=== PATIENT | male | born 1950 | race Caucasian/White ===

== ENCOUNTER 2020-07-12 07:20 | Emergency (ER) | payer OTHER, SELFPAY ==
[2020-07-12 07:20] VITALS: BP 181/96; PULSE 110; RESP 18; TEMP 36.6; O2SAT 96; BMI 27.3
--- NOTE | 2020-07-12 07:50 | ED.GENADULT ---
HPI - General Adult General Chief complaint: Abdominal Pain Stated complaint: GROIN PAIN Time Seen by Provider: 07/12/20 07:37 Source: patient Mode of arrival: ambulatory Limitations: no limitations History of Present Illness HPI narrative: 69-year-old male who presents emergency department for evaluation of left groin pain x3 days. Patient states that he did do sit-ups 3-4 days ago but does not remember injuring himself. He states that after the sit-ups he then developed left-sided groin pain. He states the pain is a constant, aching pain. States the pain has been 8/10 at its worst. The patient has been taking Advil 400 mg 2 to 3 times a day with no relief of his pain. He states that he was up all night secondary to his pain therefore came to emergency department for evaluation this morning. The patient denied fever, chills, nausea, vomiting, frequency, urgency or dysuria. He states that he has no difficulty moving his bowels or passing gas. Patient states he did have a right-sided hernia 10 years prior which was repaired by has no other surgical history. He does not have any chronic medical conditions except for joint pain and he takes cqag-[id number] medications for this pain. Related Data Allergies Allergy/AdvReac Type Severity Reaction Status Date / Time No Known Allergies Allergy Unverified 03/08/20 14:35 [No Known Allergies*] Review of Systems Review of Systems: Yes all other systems are reviewed and are negative Neurologic: Reports Abnormal speech present [facility] Past Medical History [facility] Narrative: No chronic medical problems, the patient denies tobacco, alcohol and drug use. Social History Social History Advance Directives: No Advance Directives Information Provided: Yes Physical Exam Vital Signs: Vital Signs: Last Vital Signs Temp 97.9 F 07/12/20 07:20 Pulse 110 H 07/12/20 07:20 Resp 18 07/12/20 07:20 BP 181/96 H 07/12/20 07:20 Pulse Ox 96 07/12/20 07:20 Body Mass Index 27.3 Const: General: cooperative and healthy appearing Orientation/consciousness: oriented to person and oriented to place Limitations: no limitations HENMT: Head: Yes normal to inspection, Yes normocephalic and Yes atraumatic Ears: external ears normal General nose exam: Normal external nose present Face and sinus: Yes normal facial exam Mouth: Normal oral and palatal mucosa present Throat: Yes posterior oropharynx normal Eyes: Periorbital: periorbital findings normal Eyelids: Yes eyelids normal Conjunctivae: conjunctivae normal Sclerae: sclerae normal Corneas: corneas normal Pupils: Equal, round and reactive pupils present Direct Ophthalmoscopy: normal light reflex Neck: Neck: Yes full ROM, Yes no lymphadenopathy, Yes no meningeal signs, Yes trachea midline and Yes supple Chest: Chest palpation & inspection: normal inspection of the chest and normal palpation of entire chest wall Resp: Effort & Inspection: normal respiratory effort and able to speak in complete sentences Auscultation: clear to auscultation bilaterally Cardio: Rate: regular rate Rhythm: regular rhythm Heart sounds: S1 normal heart sound present, S2 normal heart sound present and no murmurs GI: Inspection: Yes normal to inspection Palpation (GI): Soft to palpation, nontender, no guarding, not rigid and No hepatosplenomegaly present : General: Yes no CVA tenderness Male General Exam: Yes normal external exam Penis: normal penis, no ecchymosis, not edematous and no masses Scrotum: scrotum normal and no inguinal hernias (Tender along the inguinal canal, no mass palpable) Testes: Testes normal Back/Spine/Pelvis: Back: no CVA tenderness Cervical Spine: normal cervical lordosis Thoracic/Lumbar Spine: thoracic and lumbar spine normal to inspection Skin: Lesions: no lesions Rashes: no rashes Wounds: no wounds Neuro: General: oriented to person, oriented to place and no meningeal signs Cranial nerves: Yes Equal, round and reactive pupils present Cognition (Neuro): normal cognition Speech: Abnormal speech present Motor exam (neuro): 5/5 motor strength present throughout Extrem: General: Yes normal to inspection and Yes full ROM Psych: Appearance: well kempt Mental Status: mental status grossly normal Speech and movement: Normal speech and movement present Affect: normal affect Attitude: cooperative Thought process: Normal thought process present Thought content: Normal thought content present Insight: Good insight present (Psych) Judgement: Good judgement present (Psych) Course Course Course Narrative: 69-year-old male who presents to emergency department for evaluation of left groin pain x3 days. The patient did do sit-ups prior to the pain starting however did not feel any discomfort while he was doing the sit-ups. Patient's of donation does reveal tenderness along the left inguinal canal however I do not feel any inguinal mass or hernia. My impression is that the patient probably opened up his inguinal canal for from doing sit-ups and may have some incarcerated fat but do not think that he has an obvious hernia or incarceration at this time. It is also possibly may have strained his left groin muscles. The patient was advised to use ice, ibuprofen and Tylenol for the next 3-4 days. He will be referred to our on-call surgeon for re-evaluation. He was given printed and verbal instructions on hernias. Discharge Plan Discharge Clinical Impression: Left inguinal pain Patient Disposition: Home, Self-Care Instructions: Groin Pain (ED) Additional Instructions: You do have tenderness over your left inguinal canal region. I suspect that from doing sit-ups you may have opened up. Inguinal canal in you may have some fat in this area which is causing you to have pain. I do not feel any intestine/bowel in this area (hernia). It is also possible you may have just strained your groin muscles. Take ibuprofen 200 mg pills, 3 pills every 6 hours as needed for pain. Take Tylenol (acetaminophen) 500 mg pills, 2 pills every 4 to 6 hours as needed for pain. Call the surgeon on-call to make a follow-up appointment within 1 to 2 week. Please return to the emergency department if your symptoms get worse or if you develop any symptoms that are concerning to you. Referrals: Ortiz Hollingsworth MD [Physician] - 2 days (Left inguinal pain after doing sit-ups, no hernia appreciated by me, needs follow-up exam)
--- NOTE | 2020-07-12 07:50 | PC.NURSE ---
RN AT BEDSIDE FOR MD EXAM. PT REPORTS PAIN LLQ QUADRANT NO OTHER SYMPTOMS. STATES HE WAS DOING SITUPS ON A BENCH BEFORE PAIN BEGAN. MD EXPLAINED COURSE OF CARE WITH PT FOR OUTPATIENT MEDS AND FOLLOW UP. PT AGREEABLE. WAITING DC PAPERWORK.
== END 2020-07-12 08:07 | disposition home or self-care (01) ==
PROVIDERS: Emergency Provider Emergency Medicine Emergency Medical Services
DX: R10.32 Left lower quadrant pain (principal); Z79.899 Other long term (current) drug therapy
CPT/HCPCS: 99284

== ENCOUNTER → 2020-07-19 11:07 | Outpatient (BNVA) | payer OTHER, SELFPAY | PROVIDERS: PCP Internal Medicine; Visit Provider Surgery ==

== ENCOUNTER 2020-09-10 11:46 | Outpatient (REF) | payer OTHER, SELFPAY ==
[2020-09-10 12:39] LABS: MANUAL DIFF FLAG NO
[2020-09-10 12:53] LABS: Estimated Average Glucose 97 mg/dL
[2020-09-10 12:57] LABS: Basophils Percent Auto 0.4 % (0-2); Eosinophils Absolute Auto 0.1 X10*3/uL (0.0-0.4); Eosinophils Percent Auto 1.8 % (0-4); Hematocrit 42.8 % (42-52); Hemoglobin 14.2 g/dl (14.0-18.0); Imm Gran Abs Auto 0.01 X10*3/uL (0.00-0.03); Imm Gran Pct Auto 0.2 % (0.0-0.4); Lymphocytes Absolute Auto 1.3 X10*3/uL (1.2-4.9); Lymphocytes Percent Auto 26.3 % (20-40); Mean Corpuscular HGB Conc 33.2 g/dl (31.0-36.0); Mean Corpuscular Hemoglobin 32.8 pg (27.0-33.0); Mean Corpuscular Volume 98.8 fL (80-98); Mean Platelet Volume 10.1 fL (9.4-12.4); Monocytes Absolute Auto 0.5 X10*3/uL (0.1-1.2); Monocytes Percent Auto 8.8 % (2-11); Neutrophils Absolute Auto 3.2 X10*3/uL (2.0-8.3); Neutrophils Percent Auto 62.5 % (45-73); Platelet Count 218 X10*3/uL (160-400); Red Blood Count 4.33 X10*6/uL (4.60-5.80); Red Cell Distribution Width 12.1 % (11.0-16.0); White Blood Count 5.1 X10*3/uL (4.8-10.8)
[2020-09-10 13:07] LABS: Alanine Aminotransferase 22 U/L (0-40); Albumin Level 4.4 g/dL (3.5-5.0); Alkaline Phosphatase 56 U/L (39-117); Anion Gap 16 (12-20); Aspartate Amino Transferase 21 U/L (5-37); Bilirubin Total 1.1 mg/dL (0.0-1.0); Blood Urea Nitrogen 21 mg/dL (9-16); Carbon Dioxide 26 mmol/L (22-29); Chloride 106 mmol/L (96-108); Cholesterol 218 mg/dL; Estimated Glomerular Filt Rate > 60; Glucose Random 91 mg/dL (60-115); HDL Cholesterol 70 mg/dL; LDL Cholesterol Calculated 132 mg/dl; Potassium 4.5 mmol/L (3.3-5.1); Sodium 143 mmol/L (135-145); Total Protein 6.5 g/dL (6.5-8.0); Triglycerides 84 mg/dL
[2020-09-10 13:28] LABS: Free T4 (Free Thyroxine) 0.86 ng/dL (0.71-1.85); Prostate Specific Antigen Scr 1.13 ng/mL (<0.05-4.0); Thyroid Stimulating Hormone 1.24 uIU/mL (0.32-4.0)
[2020-09-10 13:42] LABS: Folate 11.9 ng/mL (> or = 4.0); Vitamin B12 176 pg/mL (200-900)
== END 2020-09-10 11:47 | disposition home or self-care (01) ==
LOC: HO.LAB 11:46
PROVIDERS: PCP Internal Medicine; Visit Provider Internal Medicine
DX: R73.01 Impaired fasting glucose (principal); E66.3 Overweight; E78.00 Pure hypercholesterolemia, unspecified
CPT/HCPCS: 36415; 80053; 80061; 82607; 82746; 83036; 84153; 84439; 84443; 85025

== ENCOUNTER 2024-07-28 13:25 | Outpatient (REF) | payer OTHER, SELFPAY ==
[2024-07-28 14:25] LABS: MANUAL DIFF FLAG NO
[2024-07-28 15:46] LABS: Basophils Absolute Auto 0.1 X10*3/uL (0.0-0.2); Eosinophils Absolute Auto 0.2 X10*3/uL (0.0-0.4); Eosinophils Percent Auto 2.9 % (0-4); Hematocrit 44.3 % (42.0-52.0); Hemoglobin 15.2 g/dl (14.0-18.0); Imm Gran Abs Auto 0.02 X10*3/uL (0.00-0.03); Imm Gran Pct Auto 0.4 % (0.0-0.4); Lymphocytes Absolute Auto 1.6 X10*3/uL (1.2-4.9); Lymphocytes Percent Auto 30.1 % (20-40); Mean Corpuscular HGB Conc 34.3 g/dl (31.0-36.0); Mean Corpuscular Hemoglobin 34.2 pg (27.0-33.0); Mean Corpuscular Volume 99.6 fL (80.0-98.0); Monocytes Absolute Auto 0.4 X10*3/uL (0.1-1.2); Monocytes Percent Auto 8.5 % (2-11); Neutrophils Percent Auto 57.1 % (45-73); Platelet Count 213 X10*3/uL (160-400); Red Blood Count 4.45 X10*6/uL (4.60-5.80); Red Cell Distribution Width 11.9 % (11.0-16.0); White Blood Count 5.2 X10*3/uL (4.8-10.8)
[2024-07-28 16:28] LABS: Alanine Aminotransferase 57 U/L (0-40); Albumin Level 4.4 g/dL (3.5-5.0); Alkaline Phosphatase 56 U/L (39-117); Anion Gap 12 (12-20); Aspartate Amino Transferase 45 U/L (5-37); Bilirubin Total 1.2 mg/dL (0.0-1.0); Blood Urea Nitrogen 16 mg/dL (9-16); Calcium 9.4 mg/dL (8.4-10.2); Carbon Dioxide 24 mmol/L (22-29); Chloride 107 mmol/L (96-108); Cholesterol 199 mg/dL (<200); Estimated Glomerular Filt Rate > 60; Glucose Random 100 mg/dL (60-115); HDL Cholesterol 65 mg/dL (>40); LDL Cholesterol Calculated 117 mg/dL (<100); Potassium 4.2 mmol/L (3.3-5.1); Sodium 139 mmol/L (135-145); Total Protein 7.3 g/dL (6.5-8.0); Triglycerides 86 mg/dL (<150)
[2024-07-28 16:44] LABS: Folate 9.1 ng/mL (> or = 4.0); Vitamin B12 1455 pg/mL (200-900)
[2024-07-28 16:45] LABS: Free T4 (Free Thyroxine) 1.01 ng/dL (0.71-1.85); Thyroid Stimulating Hormone 2.49 uIU/mL (0.32-4.0)
[2024-07-29 19:24] LABS: Homocysteine 15.6 umol/L (<11.4)
[2024-08-02 08:59] LABS: Methylmalonic Acid 108 nmol/L (69-390)
[2024-08-02 21:02] LABS: Intrinsic Factor Antibodies Negative (Negative)
[2024-08-02 22:14] LABS: Parietal Cell Antibody <=20.0 Unit (<=20.0)
== END 2024-07-28 13:26 | disposition home or self-care (01) ==
LOC: HO.LAB 13:25
PROVIDERS: PCP Internal Medicine; Visit Provider Internal Medicine
DX: E78.00 Pure hypercholesterolemia, unspecified (principal)
CPT/HCPCS: 36415; 80053; 80061; 82607; 82746; 83090; 83516; 83921; 84439; 84443; 85025; 86340

== ENCOUNTER 2024-08-12 08:04 | Outpatient (REF) | payer OTHER, SELFPAY ==
--- NOTE | ~2024-08-12 | US_ITS ---
CLINICAL HISTORY: R79.89 - Other specified abnormal findings of blood chemistry Ultrasound of the abdomen Comparison: None Findings: The liver is normal in size, measuring 15.4cm. Increased echogenicity without focal lesions. Normal flow is visualized within the portal vein. No intrahepatic biliary ductal dilatation. No cholelithiasis. No gallbladder wall thickening or pericholecystic fluid. Negative Diane's sign. The common bile duct is normal, measuring 0.2cm. Unremarkable limited evaluation of the pancreas. The right kidney is normal in echogenicity and size, measuring 11.6cm. No nephrolithiasis or hydronephrosis. Parapelvic cyst versus dilation of the renal pelvis measuring 1.5 x 1.6 x 1.9 cm. The left kidney is normal echogenicity and size, measuring 11.5cm. No nephrolithiasis or hydronephrosis. The spleen is without focal lesions and normal in size, measuring 9.9cm. The aorta and IVC are unremarkable. No ascites. Impression: Hepatic steatosis. This document has been electronically signed by: Karmen Jasso MD on 08/12/2024 13:22:24
--- OUTSIDE RECORDS SUMMARY | 2024-08-12 08:10 | XMS_ITS | Patient Health Record ---
Author Organization [facility] Address [address] [place] [address] Care Team Providers Care Lens Mold Setter Name Role Phone Vida Shepard MD Primary Care Provider Ga Gee [phone] REASON FOR REFERRAL No Information MEDICATIONS Medication SIG (Take, Route, Fr equency, Duration) Notes Start Date End Date Status Suprep Bowel Prep 1 kit as directed Oral ly as directed for 1 dose 07/07/2013 Active Joint Support Active Metamucil as directed Orally o nce a day Active IMMUNIZATIONS Vaccine Route Administration Date Status Comme nts Influenza Unknown 03/22/2019 Administered SOCIAL HISTORY Tobacco Use: Social History Observation Description Date Details (start date - stop date) Former Smoker NA - NA Sex Assigned At : Social History Observation Description Sex Assigned At Unknown Tobacco Use/Smoking Question Answer Notes Patient is a former smoker When did you stop smoking? 35 plus years How long has it been since you last smoked? > 10 years PROBLEMS Problem Type ICD Code Onset Dates Problem Status W/U Status Risk SNOMED Code Notes Problem Encounter for screening for malignant neoplasm of colon (Z12.11) Active confirmed 685384090 Problem History of adenomatous polyp of colon (Z86.010) Active confirmed 999988937 Problem Preprocedural examination (Z01.818) Active confirmed 851899089852552 PLAN OF TREATMENT Future Test Test Name Order Date COLONOSCOPY 07/07/2013 COLONOSCOPY 05/12/2019 Next Appt Details Provider Name:Ga Nascimento , 09/08/2024 10:40:00 AM, [address], [address], [place], [address], Insurance Providers Payer Name Payer Address Payer Phone Subscriber Number Group Number Insured Name Patient Relationship to Insured Coverage Start Date Coverage End Date [facility] [address] [place] [phone] [id number] PURA CRUZ Self - patient is the insured MEDICAL (GENERAL) HISTORY Medical History History ICD Code Colonoscopy 04-05-2008--smal l tubular adenomas removed, mild sigmoid diverticulosis, internal hemorrhoids Denies [place],DM,CVA,Lung disease,renal dise ase Colonoscopy in 08/2013--small tubular helio nomas removed Surgical History Surgery Date(Month/Year) Shoulder surgery Knee surgery Elbow surgery Inginal hernia surgery
== END 2024-08-12 08:05 | disposition home or self-care (01) ==
LOC: HO.US 08:04
PROVIDERS: Visit Provider Internal Medicine
DX: R79.89 Other specified abnormal findings of blood chemistry (principal)
CPT/HCPCS: 76700

== ENCOUNTER → 2024-08-12 08:06 | Outpatient (BNV) | payer OTHER, SELFPAY | PROVIDERS: Visit Provider Radiology Diagnostic Radiology | DX: K76.0 Fatty (change of) liver, not elsewhere classified (principal) | CPT/HCPCS: 76700 ==

== ENCOUNTER 2024-08-26 07:11 | Outpatient (REF) | payer OTHER, SELFPAY ==
[2024-08-26 08:22] LABS: Alanine Aminotransferase 35 U/L (0-40); Albumin Level 4.1 g/dL (3.5-5.0); Alkaline Phosphatase 63 U/L (39-117); Anion Gap 11 (12-20); Aspartate Amino Transferase 28 U/L (5-37); Bilirubin Total 0.7 mg/dL (0.0-1.0); Blood Urea Nitrogen 19 mg/dL (9-16); Carbon Dioxide 26 mmol/L (22-29); Chloride 110 mmol/L (96-108); Estimated Glomerular Filt Rate > 60; Glucose Random 100 mg/dL (60-115); Potassium 4.5 mmol/L (3.3-5.1); Sodium 142 mmol/L (135-145); Total Protein 6.9 g/dL (6.5-8.0)
[2024-08-26 09:01] LABS: HBc Num1 0.12 S/CO (0.00-0.79); HBsAGNum1 0.33 S/CO (0.00-0.99); Hepatitis B Core Antibody Nonreactive (Nonreactive); Hepatitis B Surface Antigen Negative (Negative); ~HepC Num1 0.08 S/CO (0.00-0.79); ~Hepatitis B Surface Antibody NONREACTIVE (Nonreactive); ~Hepatitis C Antibody Nonreactive (Nonreactive)
== END 2024-08-26 07:12 | disposition home or self-care (01) ==
LOC: HO.LAB 07:11
PROVIDERS: PCP Internal Medicine; Visit Provider Internal Medicine
DX: R79.89 Other specified abnormal findings of blood chemistry (principal)
CPT/HCPCS: 36415; 80053; 86704; 86706; 86803; 87340

== ENCOUNTER 2024-11-04 13:07 | Outpatient (AMB) | payer OTHER, SELFPAY ==
--- OUTSIDE RECORDS SUMMARY | 2024-11-04 13:09 | XMS_ITS ---
Author Organization [facility] Address [address] [place] [address] Care Team Providers Care Benefits Counselor Name Role Phone Vida Shepard MD Primary Care Provider Ga Gee [phone] Allergies No Known Allergies REASON FOR VISIT Patient presents today for a colon recall Medications Medication SIG (Take, Route, Frequency, Duration) Notes Start Date End Date Status Metamucil as directed Orally once a day Active Social History Tobacco Use: Social History Observation Description Date Details (start date - stop date) Former Smoker NA - NA Tobacco Use/Smoking Question Answer Notes Patient is a former smoker When did you stop smoking? 35 plus years How long has it been since you last smoked? > 10 years Section Notes: Nonsmoker; Vital Signs Blood pressure systolic 111 mm Hg 09/09/19 25 Blood pressure diastolic 111 mm Hg 025 Height 70.5 in 09/08/2024 Weight 200 lbs 09/08/2024 BMI 28.29 kg/m2 09/08/2024 Procedures Procedure Date Ordered Date Performed Result Body Sit e COLONOSCOPY 09/08/2024 N/A Encounters Encounter Location Date Provider Diagnosis [facility] [address] [place] [address] 09/08/2024 Ga Nascimento History of adenomato us polyp of colon Z86.010 ; Preprocedural examination Z01.818 and Encounter for screening for malignant neoplasm of colon Z12.11 Assessments Encounter Date Diagnosis (ICD Code) Assessment Notes Treatment Notes Treatment Clinical Notes Section Notes 09/08/2024 History of adenomatous polyp of colon (ICD-10 - Z86.010) Overall, Johnie appears quite well. Given his previous history of tubular adenomas, his family history of colon cancer, and his last colonoscopy being over 5 years ago, I did recommend a follow-up colonoscopy for further screening purposes. We did review the rationale for this in regard to colon cancer prevention. Full consent has been obtained for this, including risks of bleeding and perforation. The procedure will be done with monitored anesthesia care. Johnie was comfortable with this plan. Thank you again for allowing me to participate in Johnie's care. I shall continue to keep you advised of his progress. 09/08/2024 Preprocedural examination (ICD-10 - Z01.818) Overall, Johnie appears quite well. Given his previous history of tubular adenomas, his family history of colon cancer, and his last colonoscopy being over 5 years ago, I did recommend a follow-up colonoscopy for further screening purposes. We did review the rationale for this in regard to colon cancer prevention. Full consent has been obtained for this, including risks of bleeding and perforation. The procedure will be done with monitored anesthesia care. Johnie was comfortable with this plan. Thank you again for allowing me to participate in Johnie's care. I shall continue to keep you advised of his progress. 09/08/2024 Encounter for screening for malignant neoplasm of colon (ICD-10 - Z12.11) with MAC Overall, Johnie appears quite well. Given his previous history of tubular adenomas, his family history of colon cancer, and his last colonoscopy being over 5 years ago, I did recommend a follow-up colonoscopy for further screening purposes. We did review the rationale for this in regard to colon cancer prevention. Full consent has been obtained for this, including risks of bleeding and perforation. The procedure will be done with monitored anesthesia care. Johnie was comfortable with this plan. Thank you again for allowing me to participate in Johnie's care. I shall continue to keep you advised of his progress. Plan Of Treatment Treatment Notes Assessment Notes Encounter for screening for malignant ne oplasm of colon with MAC Pending Test Test Name Order Date COLONOSCOPY 09/08/2024 Next Appt Details Follow Up: prn, Reason: Provider Name:Ga Brenda Nascimento , 12/07/2024 10:30:00 AM, [address] [place] [address] , [place], [place], [phone], Progress Notes * PURA CRUZOB:[birth year] (73 yo M)Acc No.[id number]:09/08/2024 Progress Notes Patient:?PURA CRUZ Provider:?Ga Nascimento MD :1950???Age:73 Y???Sex:Male Hai e:09/08/2024 Address:[address] [facility] Pcp:Vida Shepard MD Subjective: * Chief Complaints: * ???Patient presents today fo r a colon recall * HPI: ???incontinence:? I saw Johnie in the office today for evaluation of his personal history of tubular adenomas of the colon, family history of colon cancer, and need for colorectal cancer screening. I last saw Johnie in July 2019, at which time he underwent a follow-up colonoscopy with removal of a small tubular adenoma. He presently feels very well. He enjoys a good appetite, without any significant heartburn or dysphagia. His bowel movements have remained regular and without any signs of bleeding. He denies abdominal pain, jaundice, nor unintentional weight loss. His family history is notable for his brother having from colon cancer in his 50s. Laboratories from earlier this year revealed a normal CBC, chemistries and renal function, and liver profile. * ROS:?General/Constitutional:?Change in appetite?denies.?Chills?denies.?Fatigue?denies.?Ophthalmologic:?Patient denies? Negative..?ENT:?Patient denies?Negative..?Respiratory:?Patient denies?No coughing/hemoptysis..?Cardiovascular:?Patient denies? No chest pain/orthopnea..?Gastrointestinal:?Comments?See HPI for details.?Genitourinary:?Patient denies? No dysuria/hematuria..?Musculoskeletal:?Patient denies? No specific arthralgias/myalgias..?Skin:?Patient denies?No rash/pruritus..?Neurologic:?Patient denies? No headaches/seizures..?Psychiatric:?Patient denies?Negative..? * Medical History:? * Surgical History:?Shoulder s urgery Knee surgery Elbow surgery Inginal hernia surgery * Hospitalization/Major Diagno stic Procedure:?No Hospitalization History. * Family History:?Father: dece ased, diagnosed with Heart disease.?Mother: .?Siblings: , brother of colon cancer at age 55.? * Social History:?Tobacco Use:?Tobacco Use/Smoking?Patient is a?former smoker,?When did you stop smoking??35 plus years,?How long has it been since you last smoked??> 10 years.?Drugs/Alcohol:?Alcohol Screen?Points: 4, Interpretation: Positive.?Miscellaneous:?Marital status: . 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 ???Nonsmoker;. * Medications:?TakingMetamucil as directed Orally once a day Taking Metamucil as directed Orally once a day DiscontinuedSuprep Bowel Prep 1 kit Solution as directed Orally as directed Joint Support Medication List reviewed and reconciled with the patientDiscontinued Suprep Bowel Prep 1 kit Solution as directed Orally as directed Discontinued Joint Support Medication List reviewed and reconciled with the patient * Allergies:?N.K.D.A.yes[Aller gies Verified] Objective: * Vitals:?Wt:200lbs, Ht: 70.5 in, BMI:28.29Index, BP:111/111mm Hg, Wt-k.72. * Examination: ???General Examination: ?GENERAL APPEARANCE:?pleasant, well nourished, well developed, in no acute distress.?EYES:?sclera non-icteric.?ORAL CAVITY:?mucosa moist.?NECK/THYROID:?no cervical lymphadenopathy, neck supple.?SKIN:?nonjaundiced, no spider angiomata..?HEART:?S1, S2 normal.?LUNGS:?clear to auscultation bilaterally.?ABDOMEN:?normal bowel sounds, no guarding or rigidity, no hepatosplenomegaly, no masses palpable, soft, nontender, nondistended..?EXTREMITIES:?no edema.?NEUROLOGIC:?alert and oriented.? Assessment: * Assessment: 1.?Preprocedural examination - Z01.818 (Primary)???2.?History of adenomatous polyp of colon - Z86.010???3.?Encounter for screening for malignant neoplasm of colon - Z12.11??? Overall, Johnie appears quite well. Given his previous history of tubular adenomas, his family history of colon cancer, and his last colonoscopy being over 5 years ago, I did recommend a follow-up colonoscopy for further screening purposes. We did review the rationale for this in regard to colon cancer prevention. Full consent has been obtained for this, including risks of bleeding and perforation. The procedure will be done with monitored anesthesia care. Johnie was comfortable with this plan. Thank you again for allowing me to participate in Johnie's care. I shall continue to keep you advised of his progress. Plan: * Treatment: 2.?Encounter for screening for malignant neoplasm of colon?Procedure: COLONOSCOPY* sched for 12/07/24 at 10:30 a mmacmiralax Notes: with MAC?? * Procedure Codes:?27686 DIAGN OSTIC [id number] COLORECTAL CA SCREEN DOC [id number] TOBACCO [id number] BP SCR NOT PRFRM REC REASON [id number] RCMND FLW-UP 10 YRS DOCD * Preventive Medicine:? ??Counseling:?Care goal follow-up plan:?Above Normal BMI Follow-up?Giving encouragement to exercise,?Below Normal BMI Follow-up?Lifestyle education regarding diet,?BMI management provided?Yes.? ??Screenings:?Fall Risk Screening?Fall Risk Assessment:?No falls in the past year,?Screening:?No falls in the past year,?Assessment:?Not performed, no reason specified,?Plan of Care:?Not documented, no reason specified.? * Follow Up:?prn * * Sign off status: Completed true * Provider:?Ga Nascimento MD Date:? 025 Generated for Printi ng/Faxing/eTransmitting on:?11/04/2024 01:09 PM EDT History and Physical Notes * Examination Category Sub-Category Detail Notes Category Not es General Examination GENERAL APPEARANCE: pleasant , well nourished, well developed, in no acute distress EYES: sclera non-icteric NECK/THYROID: no cervical lymphade nopathy, neck supple HEART: S1, S2 normal LUNGS: clear to auscultatio n bilaterally ABDOMEN: normal bowel sounds, no guarding or rigidity, no hepatosplenomegaly, no masses palpable, soft, nontender, nondistended. NEUROLOGIC: alert and oriented SKIN: nonjaundiced, no spi cristina angiomata. EXTREMITIES: no edema ORAL CAVITY: mucosa moist
--- OUTSIDE RECORDS SUMMARY | 2024-11-04 13:09 | XMS_ITS | Patient Health Record ---
Author Organization [facility] Address [address] [place] [address] Care Team Providers Care Furnace Cleaner Name Role Phone Vida Shepard MD Primary Care Provider Ga Gee [phone] Allergies No Known Allergies Reason For Referral No Information Medications Medication SIG (Take, Route, Frequency, Duration) Notes Start Date End Date Status Metamucil as directed Orally once a day Active Immunizations Vaccine Route Administration Date Status Comme nts Influenza Unknown 03/22/2019 Administered Social History Tobacco Use: Social History Observation Description Date Details (start date - stop date) Former Smoker NA - NA Tobacco Use/Smoking Question Answer Notes Patient is a former smoker When did you stop smoking? 35 plus years How long has it been since you last smoked? > 10 years Section Notes: Nonsmoker; 2 drinks a night Nonsmoker; 2 drinks a night Nonsmoker; Problems Problem Type SNOMED Code ICD Code Onset Dates Problem Status W/U Status Risk Notes Problem [id number] Encounter for screening for malignant neoplasm of colon (Z12.11) Active confirmed Problem 709559894 History of adenomatous polyp of colon (Z86.010) Active confirmed Problem 374514342118998 Preprocedural examination (Z01.818) Active confirmed Vital Signs Blood pressure diastolic 111 mm Hg 09/08/2024 Height 70.5 in 09/08/2024 Blood pressure systolic 111 mm Hg 09/08/2024 Weight 200 lbs 09/08/2024 BMI 28.29 kg/m2 09/08/2024 Procedures Procedure Date Ordered Date Performed Result Body Sit e COLONOSCOPY 09/08/2024 N/A Encounters Encounter Location Date Provider Diagnosis [facility] [address] [place] [address] 09/08/2024 Ga Nascimento History of adenomato us [...] advised of his progress. Plan Of Treatment Pending Test Test Name Order Date COLONOSCOPY 09/08/2024 Future Test Test Name Order Date COLONOSCOPY 07/07/2013 COLONOSCOPY 05/12/2019 Next Appt Details Provider Name:Ga Nascimento , 12/07/2024 10:30:00 AM, [address] [place] [address] , [place], [place], [phone], Insurance Providers Payer Name Payer Address Payer Phone Subscriber Number Group Number Insured Name Patient Relationship to Insured Coverage Start Date Coverage End Date [facility] [address] [place] [phone] [id number] PURA CRUZ Self - patient is the insured Medical (General) History Medical History History ICD Code Colonoscopy 04-05-2008--smal l tubular adenomas removed, mild sigmoid diverticulosis, internal hemorrhoids Denies CA,DM,CVA,Lung disease,renal dise ase Colonoscopy in 08/2013--small tubular helio nomas removed Colonoscopy 07/2019 with removal of a sma ll tubular adenoma Surgical History Surgery Date(Month/Year) Inginal hernia surgery Elbow surgery Knee surgery Shoulder surgery
--- NOTE | 2024-11-04 13:18 | MHC.PC.OV ---
Vital Signs 11/04/24 13:25 Height 5 ft 11 in Weight 197 lb 4 oz BMI 27.5 BP 136/64 Blood Pressure Location Lt brachial Position Sitting Pulse 95 Pulse Source Pulse Oximeter Temp 97.1 F Temp Source Temporal Artery Scan Pulse Oximetry (%) 97 Oxygen Delivery Method Room Air Intake Visit Reasons: Annual Exam Field Case Manager Required: No Accompanied by: Self / Same As Patient Allergies No Known Allergies [No Known Allergies*] Allergy (Verified 11/04/24 13:19) Medication List - Last Reconciled 11/04/24 by Vida Shepard MD antiarthritic combination no.2 (glucosamine-chondroitin) mg PO psyllium husk (Metamucil) 0.52 grams PO DAILY Tobacco use date assessed: 07/28/24 Fall risk assessment: No Falls in past year Last assessed Fall Risk: 11/04/24 Dental Screening Dental Screen Date: 07/28/24 [facility] Medical History (Updated 11/04/24 @ 13:48 by Vida Shepard MD) LFT elevation Elbow fracture, right Left groin pain No active medical problems Surgical History H/O shoulder surgery H/O: knee surgery H/O inguinal hernia repair Family History Brother History of colon cancer, Onset Age: 48 Social History (Updated 11/04/24 @ 13:39 by Vida Shepard MD) Housing: House Alcohol intake: current Alcohol intake frequency: 0-2 drinks per day Comment: QD 1 drink Patient Tobacco Use Status: Former Tobacco user Years Smoked: 30 years old e-Cigarette/Vaping Use: Never Used Second Hand Smoke Exposure: No service: No Current occupational status: employed Current occupational exposures/hazards: No Cognitive needs: No Hearing needs: No Vision needs: No Questionnaire Thrive Questionnaire Date Thrive assessed: 07/28/24 I am a: Patient What is your living situation today?: I have a steady place to live Within the past 12 months, did the food you bought not last and you didn't have the money to get more?: Never true Within the past 12 months, did you worry whether your food would run out before you got money to buy more?: Never true Do you have trouble paying for medicines?: No Do you have trouble getting transportation to medical appointments?: No Do you have trouble paying your heating and electricity bill?: No Do you have trouble taking care of your child, family member or friend?: No Do you have trouble with day-to-day activities such as bathing, preparing meals, shopping, managing finances, etc.?: No Are you currently unemployed and looking for a job?: No Are you interested in more education?: No Please select the resources that you would like help with: None Currently or been in a relationship where the following occur: No concerns reported THRIVE Score: 0 NATALIE-7 AMB Questionnaire NATALIE-7 Date NATALIE - 7 assessed: 07/28/24 Source: Developed by Drs. Ga Tee, Claudia Morin, Kaden Mcclendon and colleagues, with an educational tg from [employer]. Review of Systems Const Denies poor appetite and Denies weakness Eyes Denies no additional complaints ENT Reports Normal hearing present, Denies dizziness, Denies nasal congestion, Denies tinnitus and Denies sore throat Card Denies chest pain, Denies syncope, Denies rapid heart rate and Denies dyspnea Resp Denies cough and Denies dyspnea GI Denies change in stool character, Reports constipation, Denies diarrhea, Denies nausea and Denies vomiting Denies dysuria and Denies urinary frequency Neuro Reports Normal hearing present, Denies confusion, Denies dizziness, Denies syncope and Denies weakness Psych Denies confusion Physical exam (Primary Care) Vital Signs: Last Vital Signs Temp 97.1 F 11/04/24 13:25 Pulse 95 11/04/24 13:25 BP 136/64 11/04/24 13:25 Pulse Ox 97 11/04/24 13:25 Oxygen Delivery Method Room Air 11/04/24 13:25 BMI result Body Mass Index 27.5 Tobacco/Smoking Status: Tobacco use Status Tobacco use date assessed 07/28/24 11/04/24 13:18 Patient Tobacco Use Status Former Tobacco user 11/04/24 13:39 e-Cigarette/Vaping Use Never Used 11/04/24 13:39 Thrive Assessment: Date of Thrive Assessment Date Thrive assessed 07/28/24 11/04/24 13:18 Currently or been in a relationship where the following occur: No concerns reported Const General: No confusion Orientation/consciousness: No confusion HENMT Other: impacted cerumen L ear , R TM intact Head: Yes normocephalic Ears: external ears normal Face and sinus: Yes normal facial exam Mouth: moist mucous membranes Throat: Yes tonsils normal Eyes Conjunctivae: conjunctivae normal Pupils: Equal, round and reactive pupils present and Pupil accommodation reflex normal Direct Ophthalmoscopy: normal light reflex Neck Neck: No lymphadenopathy Thyroid: Thyroid normal Chest Chest palpation & inspection: normal inspection of the chest Resp Effort & Inspection: normal respiratory effort and no audible wheezes Auscultation: clear to auscultation bilaterally, no crackles, no wheezes and lung sounds not diminished Cardio Rate: regular rate Rhythm: regular rhythm Peripheral pulses: radial pulses present and dorsalis pedis present GI Other: colon test 11/2024 Palpation (GI): no masses Auscultation: normal bowel sounds and normoactive bowel sounds Rectal Exam - Male: Yes deferred Male General Exam: Yes normal external exam Skin General skin exam: no rashes or lesions noted Rashes: no rashes Neuro General: No confusion Cranial nerves: Yes Equal, round and reactive pupils present and Yes Normal hearing present Cognition (Neuro): normal cognition Gait exam (Neuro): Normal gait present Motor exam (neuro): 5/5 motor strength present throughout Deep tendon reflexes (DTR's): Right brachioradialis reflex intensity grade: 2+, Left brachioradialis reflex intensity grade: 2+, Right patellar reflex intensity grade: 2+ and Left patellar reflex intensity grade: 2+ Extrem General: No edema Office Procedures Cerumen Removal From which ear canal was the cerumen removed: left Removal: otoscope w/curette and cerumen loop/spoon Notes: patient tolerated procedure well, no complications and ear canal clear 40641-[id number] Wax Removal by Spoon/Curette Coding Level of Care Code Est Pt Level 3 (31272) Est Pt Prev Care >65y(42635) Diagnoses Annual physical exam Z00.00 Hepatic steatosis K76.0 Colon cancer screening Z12.11 Hypercholesterolemia E78.00 Vitamin B12 deficiency E53.8 Impaired fasting blood sugar R73.01 Overweight (BMI 25.0-29.9) E66.3 Impacted cerumen of left ear H61.22 CPT Codes Office Procedure - CPT: 43755-Mqj Wax Removal by Spoon/Curette ([id number]) Assessment & Plan Assessment & Plan (1) Annual physical exam: Code(s): Z00.00 - Encounter for general adult medical examination without abnormal findings Category: Medical Plan: Patient is advised to eat healthy, keep well hydrated, keep active and have adequate sleep. (2) Hepatic steatosis: Comment: July 2024 Code(s): K76.0 - Fatty (change of) liver, not elsewhere classified Category: Medical Plan: Low-fat diet and exercise. Noted weight loss (3) Colon cancer screening: Code(s): Z12.11 - Encounter for screening for malignant neoplasm of colon Category: Medical Plan: Patient has a scheduled colonoscopy in December 07 2024 (4) Hypercholesterolemia: Code(s): E78.00 - Pure hypercholesterolemia, unspecified Category: Medical Plan: Avoid fried foods, chicken skin, eggs, butter margarine, pastries and meat. Be it pork or beef they have a lot of cholesterol recent blood work in August reveals normal cholesterol. (5) Vitamin B12 deficiency: Code(s): E53.8 - Deficiency of other specified B group vitamins Category: Medical Plan: Continue with taking vitamin B12 (6) Impaired fasting blood sugar: Code(s): R73.01 - Impaired fasting glucose Category: Medical Plan: Decrease the amount of carbohydrate intake, pasta, bread, rice and potatoes are all sugar and that is aside from all the sweet stuff, remember that fruits are good but they are Sweet also. (7) Overweight (BMI 25.0-29.9): Code(s): E66.3 - Overweight Category: Medical Plan: Continue with diet and exercise (8) Impacted cerumen of left ear: Code(s): H61.22 - Impacted cerumen, left ear Category: Medical Plan: scoop used and no irrigation TM intact Plan History of Present Illness The patient is a 73-year-old male presenting with a follow-up visit for health maintenance and management of chronic conditions, specifically impaired glucose tolerance, hypercholesterolemia, and hepatic steatosis. The patient has noted a significant weight loss of 17 pounds, attributed to dietary changes and an exercise regimen. Hepatic steatosis was confirmed in an abdominal ultrasound performed in July 2020. Recent laboratory work from August showed mild hyperglycemia, while cholesterol management has been effective, indicating normal lipid levels during the last assessment. Thyroid function was normal. The patient has scheduled a follow-up colonoscopy for December 07, 2024, as his last screening was done in 2019. Previous medical history includes surgeries for shoulder, knee, and hernia. Lifestyle modifications with an emphasis on a low-fat diet and regular exercise have been adapted to manage his conditions, aligning with current wellness goals. Health Maintenance - Scheduled colonoscopy on December 07, 2024 - Adherence to low-fat diet and regular exercise regimen - Recognition of normal cholesterol levels as of August 2024 labs - Continued monitoring of glucose levels and hepatic function - Vaccination review, encouraged to consider dual shingles vaccine for increased efficacy - Confirmation of prior pneumonia and tetanus vaccinations Social History - Employment: Involves dining out regularly due to work obligations - Alcohol use: Consumes alcohol daily, limited to one drink - Tobacco use: Ceased cigarette smoking 40 years ago - Diet: Follows low-fat diet substituting chicken or fish for red meat - Exercise: Engages in regular physical activity contributing to weight loss Review of Systems - Cardiovascular: Denies chest pain, palpitations, or shortness of breath - Respiratory: Denies dyspnea, cough - Gastrointestinal: Denies nausea, vomiting, constipation; normal bowel movements - Genitourinary: Nighttime urination once; denies dysuria or urgency - Neurological: Denies dizziness, syncope, sensory changes - Endocrine: Denies polyphagia, polydipsia, or polyuria - Musculoskeletal: Denies joint pain, reports past knee and shoulder surgeries - Ophthalmologic: Reports normal vision, no recent testing mentioned - Otorhinolaryngologic: Denies hearing loss, tinnitus Physical Exam General: Cooperative, healthy appearing, comfortable, no acute distress and well developed Orientation: Patient oriented x3 Limitations: No limitations Head: Normal to inspection Ears: Hearing grossly normal bilaterally, ear wax noted Nose: Normal external nose present Face and sinus: Normal facial exam Eyes: Appearance normal, both eyes and all related structures Neck: Normal visual inspection and Yes full ROM Respiratory: Normal respiratory effort and able to speak in complete sentences. Clear to auscultation bilaterally Cardiovascular: Regular rate and rhythm. Normal S1 and S2 GI: Normal to inspection. Soft to palpation and nontender Skin: No rashes or lesions noted Neuro: Patient oriented x3 Extremities: Normal to inspection Results - Labs: Blood sugar mildly elevated at 100 mg/dL; normal cholesterol, good liver function - Tests: Previous ultrasound confirmed hepatic steatosis - Diagnostics planned: Colonoscopy scheduled for December 07, 2024 Plan Impaired glucose tolerance will be managed with continued diet and exercise modifications, focusing on weight loss and metabolic control. Hypercholesterolemia remains under control, and current management will persist. Scheduled colonoscopy on December 07, 2024, will ensure appropriate cancer screening. Monitoring hepatic function and managing hepatic steatosis with lifestyle measures will remain a priority. Additional shingles vaccination was discussed, considering patient?s history. Patient was informed and verbally consented to the use of an ambient scribe for clinic note documentation during this visit. Discussion Notes During our discussion, it was emphasized that maintaining a low-fat diet and regular physical activity is crucial for managing glucose and lipid levels as well as hepatic health. The patient expressed awareness and compliance with dietary recommendations. I advised scheduling follow-up blood work in approximately eight months to reassess fasting glucose, lipid levels, and liver enzymes to track improvement and manage health risks proactively. Colonoscopy scheduled for December 07, 2024, was confirmed for colorectal cancer screening. Vaccination history was reviewed, and I encouraged considering the two-part shingles vaccine for improved efficacy, confirming prior tetanus and pneumonia vaccines with pharmacy records as necessary. The patient was reminded of the importance of hydration and moderation of alcohol consumption. Patient Instructions - Maintain low-fat diet and exercise regularly - Attend scheduled colonoscopy on December 07, 2024 - Drink plenty of water daily - Limit alcohol intake - Consider completing the two-part shingles vaccination - Follow up with blood work in approximately eight months - Monitor for any new symptoms or changes in health - Return for annual wellness check or sooner if needed Orders: Orders Complete Blood Count Auto Diff 8 Months R73.01 - Impaired fasting glucose Comprehensive Met. Panel 8 Months R73.01 - Impaired fasting glucose Thyroid Stimulating Hormone 8 Months R73.01 - Impaired fasting glucose Lipid Panel 8 Months E78.00 - Pure hypercholesterolemia, unspecified, R73.01 - Impaired fasting glucose Prostate Specific Antigen Scr 8 Months R73.01 - Impaired fasting glucose Free T4 (Free Thyroxine) 8 Months R73.01 - Impaired fasting glucose Vitamin B12 and Folate 8 Months R73.01 - Impaired fasting glucose Hemoglobin A1c 8 Months R73.01 - Impaired fasting glucose
[2024-11-04 13:25] VITALS: BP 136/64; PULSE 95; TEMP 36.2; O2SAT 97; BMI 27.5
== END 2024-11-04 14:15 | disposition home or self-care (01) ==
LOC: HO.HMCH 13:08
PROVIDERS: Visit Provider Internal Medicine
DX: Z00.00 Encounter for general adult medical examination without abnormal findings (principal); K76.0 Fatty (change of) liver, not elsewhere classified; Z12.11 Encounter for screening for malignant neoplasm of colon; E78.00 Pure hypercholesterolemia, unspecified; E53.8 Deficiency of other specified B group vitamins; R73.01 Impaired fasting glucose; E66.3 Overweight; H61.22 Impacted cerumen, left ear

== ENCOUNTER → 2024-11-04 13:07 | Outpatient (BNVA) | payer OTHER, SELFPAY | PROVIDERS: Visit Provider Internal Medicine | DX: Z00.00 Encounter for general adult medical examination without abnormal findings (principal); H61.22 Impacted cerumen, left ear; K76.0 Fatty (change of) liver, not elsewhere classified; E78.00 Pure hypercholesterolemia, unspecified; E53.8 Deficiency of other specified B group vitamins; R73.01 Impaired fasting glucose; E66.3 Overweight; Z68.27 Body mass index [BMI] 27.0-27.9, adult | CPT/HCPCS: 69210 ==

== ENCOUNTER 2024-12-07 09:02 | Day surgery (SDC) | payer OTHER, SELFPAY ==
[2024-12-05 11:23] VITALS: BMI 27.5
--- NOTE | 2024-12-06 10:05 | P.CONAN_ITS ---
Documented by User: Lynn Bergman NP 12/06/24 10:05 HPI - Anesthesia Eval Consult details Narrative: 73yo M for Colonoscopy PMFSH Active Problems Active Problems: All Active Problems Impacted cerumen of left ear (Acute) Annual physical exam (Acute) Hepatic steatosis (Acute) Colon cancer screening (Acute) Vitamin B12 deficiency (Acute) Hypercholesterolemia (Acute) Impaired fasting blood sugar (Acute) Overweight (BMI 25.0-29.9) (Acute) Left groin pain (Acute) No active medical problems (Acute) Past Medical History Medical History LFT elevation Elbow fracture, right Left groin pain No active medical problems Family History Family History Brother History of colon cancer, Onset Age: 48 Surgical History Surgical History H/O colonoscopy Hx of elbow surgery H/O shoulder surgery H/O: knee surgery H/O inguinal hernia repair Social History Social History Housing: House Alcohol intake: current Alcohol intake frequency: a few times a week Comment: QD 1 drink Patient Tobacco Use Status: Former Tobacco user Years Smoked: 30 years old e-Cigarette/Vaping Use: Never Used Second Hand Smoke Exposure: No Have you been hit, kicked, punched, or otherwise hurt by someone within the past year? If so, by whom?: No Are you DNR?: No Advance Directives: No Advance Directives Information Provided: Yes service: No Current occupational status: employed Current occupational exposures/hazards: No Cognitive needs: No Hearing needs: No Vision needs: No Meds Allergies Allergy/AdvReac Type Severity Reaction Status Date / Time No Known Allergies (No Known Allergy Verified 11/04/24 13:19 Allergies*) Home Medications ?Medication ?Instructions ?Recorded ?Confirmed ?Last Taken ?Type No Known Home Meds 12/07/24 12/07/24 Un known History Exam Height,Weight and Vital Signs: Height 5 ft 11 in Weight 89.358 kg Assessment and Plan Assessment Anesthesia Assessment: Chart Reviewed Documented by User: Torsten Singleton MD 12/07/24 10:32 PMFSH Past Medical History Medical History LFT elevation Elbow fracture, right Left groin pain No active medical problems Cognitive capacity: normal Functional capacity: independent ambulation Family History Family History Brother History of colon cancer, Onset Age: 48 Family history of problems with anesthesia: No Surgical History Surgical History H/O colonoscopy Hx of elbow surgery H/O shoulder surgery H/O: knee surgery H/O inguinal hernia repair History of Problems with Anesthesia: No Social History Social History Housing: House Alcohol intake: current Alcohol intake frequency: a few times a week Comment: QD 1 drink Patient Tobacco Use Status: Former Tobacco user Years Smoked: 30 years old e-Cigarette/Vaping Use: Never Used Second Hand Smoke Exposure: No Have you been hit, kicked, punched, or otherwise hurt by someone within the past year? If so, by whom?: No Are you DNR?: No Advance Directives: No Advance Directives Information Provided: Yes service: No Current occupational status: employed Current occupational exposures/hazards: No Cognitive needs: No Hearing needs: No Vision needs: No Meds Allergies Allergy/AdvReac Type Severity Reaction Status Date / Time No Known Allergies (No Known Allergy Verified 11/04/24 13:19 Allergies*) Home Medications ?Medication ?Instructions ?Recorded ?Confirmed ?Last Taken ?Type No Known Home Meds 12/07/24 12/07/24 Un known History Exam Exam Date and Time: Airway Mallampati Class: II TM Dist: >3cm Neck ROM: Full Loose/Missing/Broken Teeth: No Heart: rrr Lungs: cta Other: ormal cognitive functio Assessment and Plan Final Anesthetic Review Family History of Problems with Anesthesia: No History of Problems with Anesthesia: No NPO: Yes ASA Class: I Final Preanesthetic Review: No Changes in Pt Med Stat, Meds/Allgs Chart Reviewed and Consent Obtained/Reviewed Patient Risk: Low Procedure Risk: Low Anesthetic Plan Anesthetic Plan: MAC:, Regional Block and Agree w/ Assess. and Plan Disposition: Standard PACU
[2024-12-07 09:58] VITALS: BP 163/98; PULSE 68; RESP 20; TEMP 36.9; O2SAT 96
[2024-12-07] MEDS: Lactated Ringers 1,000 ML 100 ML IVCONT (10:01)
[2024-12-07 12:05] VITALS: BP 94/58; PULSE 69; RESP 16; TEMP 36.1; O2SAT 97
--- NOTE | 2024-12-07 12:07 | PM.OP ---
Brief Operative Note Date of Service: 12/07/24 Pre-op diagnosis: Screening Post-op diagnosis: other (Colon polyps) Procedure: Colonoscopy to the cecum and TI with bx/removal of cecal polyp, cold snare polypectomy at 40cm and Ascending colon, and hot snare polypectomy with Ink marking at area of Hepatic Flexure. Surgeon: Ga Nascimento MD Anesthesia: MAC Was an Recycle Driver used for this Procedure?: No Estimated blood loss (mL): 2.0 Pathology: other (A. Polyp at 40cm B. Cecal polyp C. Ascending colon polyp D. Area of Hepatic flexure polyp) Condition: stable Disposition: PACU
[2024-12-07 12:20] VITALS: BP 102/85; PULSE 67; RESP 16; TEMP 36.1; O2SAT 96
--- NOTE | 2024-12-09 02:12 | OP_ITS ---
DATE OF SERVICE: 12/07/2024 SURGEON: Ga Nascimento MD INDICATIONS: The patient presents for evaluation of colorectal cancer screening in regard to his personal history of tubular adenomas of the colon and family history of colon cancer. Full consent has been obtained from him for this, including risks of bleeding and perforation. PREOPERATIVE DIAGNOSIS: Colorectal cancer screening. POSTOPERATIVE DIAGNOSIS: PROCEDURE PERFORMED: ESTIMATED BLOOD LOSS: COMPLICATIONS: ANESTHESIA: Medication used, monitored anesthesia care. ASSISTANTS: SPECIMENS: POSTOPERATIVE DIAGNOSES: Colorectal cancer screening, colon polyps, diverticulosis, and internal hemorrhoids. PROCEDURES PERFORMED: Colonoscopy to the cecum and terminal ileum with cold snare polypectomy x2, biopsy removal of polyp x1, and hot snare polypectomy x1 in the region of hepatic flexure with placing of submucosal ink marking. DESCRIPTION OF PROCEDURE: The digital rectal exam revealed no abnormalities. The Splice Machine video pediatric colonoscope was entered into the rectum and advanced easily to the cecum. Once in the cecum, I did identify normal-appearing cecal pouch other than a 3 mm cecal polyp, which was biopsied and completely removed with cold biopsy forceps. The remainder of the cecum including the appendiceal orifice appeared normal. The terminal ileum was cannulated and appeared normal. Scope was withdrawn back in the colon. The scope was then slowly withdrawn assessing all mucosal surfaces carefully. Preparation was excellent. In the proximal ascending colon, there was approximately 5 mm polyp, which was removed by cold snare polypectomy and recovered by suction. The polypectomy site appeared clean, without any sign of residual polyp nor significant bleeding. At 40 cm, was an approximately 5 mm polyp, which was also removed by cold snare polypectomy, recovered by suction. The polypectomy site appeared clean, without any sign of residual polyp nor significant bleeding. In the area of the hepatic flexure, was what appeared to be a grossly adenomatous flat but raised polyp. This was approximately 2 cm in length and 1 cm in width. It was in a somewhat difficult area between folds and at the flexure, which made visualizing it and then removing it difficult. However, I was able to remove the lesion in piecemeal fashion with hot snare polypectomy and recovered multiple pieces by suction. Post polypectomy, there did not appear to be any residual polyp nor bleeding at the polypectomy site. I did place a submucosal ink salvador on both ends of the polypectomy site. I did not visualize any sign of colitis, angiodysplasias, nor any other polyps. There was a mild amount of sigmoid diverticulosis. In the rectum, scope was retroflexed visualizing internal hemorrhoids, but no other pathology. The rectal mucosa appeared normal. Scope was straightened and withdrawn from the patient. He tolerated the procedure well and was returned to the recovery area in stable condition. IMPRESSION: 1. Colon polyps. 2. Diverticulosis. 3. Internal hemorrhoids. PLAN: The results of the pathology will be checked. In regard to the larger polyp, assuming it to be at least an adenoma, I would recommend a repeat colonoscopy within 6-12 months for re-evaluation to be sure there is no residual polyp tissue. He was advised not to use any aspirin or NSAIDs for at least 1 or 2 weeks. He was advised to call sooner as needed. This has been discussed with his . MD MANAS Sprague/ALPHONSO / [id number] MTDD
== END 2024-12-07 12:56 | disposition home or self-care (01) ==
PROVIDERS: PCP Internal Medicine; Visit Provider Internal Medicine
PROC: 0DJD8ZZ Inspection of Lower Intestinal Tract, Via Natural or Artificial Opening Endoscopic (ICD-10-PCS; CPT 45378; principal; 2024-12-07 10:30)
DX: Z12.11 Encounter for screening for malignant neoplasm of colon (principal); D12.0 Benign neoplasm of cecum; D12.2 Benign neoplasm of ascending colon; D12.3 Benign neoplasm of transverse colon; D12.5 Benign neoplasm of sigmoid colon; K57.30 Diverticulosis of large intestine without perforation or abscess without bleeding; K64.8 Other hemorrhoids; Z86.0100 Personal history of colon polyps, unspecified; Z80.0 Family history of malignant neoplasm of digestive organs; E78.00 Pure hypercholesterolemia, unspecified; Z87.891 Personal history of nicotine dependence; Z79.899 Other long term (current) drug therapy
CPT/HCPCS: 45381; 45385; 45380; 88305; J2704